=== PATIENT | male | born 1985 | race Two or more races ===

== ENCOUNTER 2018-09-23 15:09 | Emergency (ER) | payer MEDICAID ==
[~2018-09-23] VITALS: Ht 167.6 cm; Wt 59.0 kg
[~2018-09-23 15:09] MED LIST: METF-440 PO
--- NOTE | 2018-09-23 16:19 | NUR ---
Patient discharged to home in stable conditon. Written and verbal after care instructions given. Patient verbalizes understanding of instructions.PT WALKS IN STEADY GAIT.
== END 2018-09-23 16:25 | disposition home or self-care (01) ==
LOC: ER 15:09
DX: S62.616A Displaced fracture of proximal phalanx of right little finger, initial encounter for closed fracture (principal); E11.9 Type 2 diabetes mellitus without complications; Z79.899 Other long term (current) drug therapy; X50.0XXA Overexertion from strenuous movement or load, initial encounter; Y93.89 Activity, other specified; Y92.89 Other specified places as the place of occurrence of the external cause; Y99.8 Other external cause status
CPT/HCPCS: 73140; A4663

== ENCOUNTER 2018-10-03 10:45 | Emergency (ER) | payer MEDICAID ==
[~2018-10-03] VITALS: Ht 165.1 cm; Wt 59.0 kg
--- NOTE | 2018-10-03 10:45 | NUR ---
Pt.was seen by .
[2018-10-03] MEDS ORDERED: TDAP DIPH,PERTUSS,TET VAC/PF 0.5 ML DISP.SYRIN IM ONE ×2 (12:00→12:12)
[2018-10-03 12:17] LABS: RED BLOOD CELL COUNT(AUTO) 5.03 MIL/uL (4.06-5.63); WHITE BLOOD COUNT (AUTO) 7.8 K/uL (3.6-10.2)
[2018-10-03 12:18] LABS: BASOPHILS % (AUTO) 0.3 % (0.0-2.0); EOSINOPHILS # (AUTO) 0.2 K/uL (0.0-0.7); EOSINOPHILS % (AUTO) 2.7 % (0.0-7.0); HEMATOCRIT 43.8 % (36.7-47.1); HEMOGLOBIN 14.8 g/dL (12.5-16.3); LYMPHOCYTES # (AUTO) 1.6 K/uL (20.0-40.0); LYMPHOCYTES % (AUTO) 20.4 % (20.5-51.5); MEAN CORPUSCULAR HEMOGLOBIN 29.5 uug (23.8-33.4); MEAN CORPUSCULAR HGB CONC 34 g/dL (32.5-36.3); MEAN CORPUSCULAR VOLUME 87.2 fL (73.0-96.2); MONOCYTES # (AUTO) 0.4 K/uL (2.0-10.0); NEUTROPHILS # (AUTO) 5.6 K/uL (1.8-8.9); NEUTROPHILS % (AUTO) 71.6 % (38.5-71.5); PLATELET COUNT (AUTO) 222 K/uL (152-348)
[2018-10-03 12:25] LABS: CARBON DIOXIDE 25 mmol/L (21-32); CHLORIDE 101 mmol/L (98-107); CREATININE 0.6 mg/dL (0.6-1.3); POTASSIUM 4.5 mmol/L (3.5-5.1); UREA NITROGEN, BLOOD 13 mg/dL (7-18)
[2018-10-03 12:29] LABS: GLUCOSE 384 mg/dL (74-106)
[2018-10-03 12:31] LABS: ALANINE AMINOTRANSFERASE 18 U/L (16-63); ALKALINE PHOSPHATASE 146 U/L (50-136); ASPARTATE AMINOTRANSFERASE 7 U/L (15-37); BILIRUBIN,DIRECT 0.1 mg/dL (0.0-0.2); BILIRUBIN,TOTAL 0.5 mg/dL (0.2-1.0); TOTAL PROTEIN, SERUM 7.2 g/dL (6.4-8.2)
[2018-10-03] MEDS ORDERED: INSULIN REGULAR, HUMAN 300 UNIT/3 ML VIAL SQ ONE (12:45)
--- NOTE | 2018-10-03 12:45 | NUR ---
insulin given Sub Q. Pt.education about control BS done,verbalized understanding.
[2018-10-03] MEDS ORDERED: INSULIN REGULAR, HUMAN 300 UNIT/3 ML VIAL ONE (12:47)
--- NOTE | 2018-10-03 12:50 | NUR ---
Pt.was updated by .family at bedside.
[2018-10-03 12:53] VITALS: BP 101/68
== END 2018-10-03 12:57 | disposition home or self-care (01) ==
LOC: ER 10:45
DX: S80.822A Blister (nonthermal), left lower leg, initial encounter (principal); E11.65 Type 2 diabetes mellitus with hyperglycemia; Z79.899 Other long term (current) drug therapy; X58.XXXA Exposure to other specified factors, initial encounter; Y93.89 Activity, other specified; Y92.89 Other specified places as the place of occurrence of the external cause; Y99.8 Other external cause status
CPT/HCPCS: 36415; 73590; 80048; 80076; 83605; 84484; 85025; 87040 ×2; 90471; 90715; 96372; 99284; J1815; 70030-TC; A4663

== ENCOUNTER 2019-01-13 15:59 | Emergency (ER) | payer MEDICAID ==
[~2019-01-13] VITALS: Ht 167.6 cm; Wt 54.4 kg
[2019-01-13] MEDS ORDERED: TETRACAINE HCL 0.5% OPHT DROP 2 ML BOTTLE ONE (16:13)
[2019-01-13] MEDS ORDERED: FLUORESCEIN SODIUM 1 MG STRIP ONE (16:13)
[2019-01-13] MEDS ORDERED: FLUORESCEIN SODIUM 1 MG STRIP OP ONE (16:15)
[2019-01-13] MEDS ORDERED: TETRACAINE HCL 0.5% OPHT DROP 2 ML BOTTLE OP ONE (16:15)
--- NOTE | 2019-01-13 16:15 | NUR ---
MARGARITA CARRASCO AT BEDSIDE FOR MSE.
--- NOTE | 2019-01-13 16:32 | NUR ---
Patient discharged to home in stable conditon. Written and verbal after care instructions given. Patient verbalizes understanding of instructions.
[2019-01-13 16:33] VITALS: BP 105/67
== END 2019-01-13 16:40 | disposition home or self-care (01) ==
LOC: ER 16:00
DX: H10.89 Other conjunctivitis (principal); B96.89 Other specified bacterial agents as the cause of diseases classified elsewhere; E11.9 Type 2 diabetes mellitus without complications; Z79.899 Other long term (current) drug therapy
CPT/HCPCS: A4663

== ENCOUNTER 2019-01-14 05:15 | Emergency (ER) | payer MEDICAID ==
[~2019-01-14] VITALS: Ht 167.6 cm; Wt 59.0 kg
--- NOTE | 2019-01-14 05:26 | NUR ---
Pt ambulated to ER c/o left eye pain 8/10 and headache. 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 Pt states he used prescribed eye drops and the burning in his left eye has not resolved since he was last seen here yesterday.
--- NOTE | 2019-01-14 05:54 | NUR ---
Dr Chawla at bedside for MSE.
--- NOTE | 2019-01-14 06:05 | NUR ---
Patient discharged to home in stable conditon. Written and verbal after care instructions given. Patient verbalizes understanding of instructions. Pt ambulated out of ER with stable gait, accompanied by . All belongings with pt.
[2019-01-14 06:09] VITALS: BP 115/70
== END 2019-01-14 06:10 | disposition home or self-care (01) ==
LOC: ER 05:17
DX: H10.9 Unspecified conjunctivitis (principal); E11.9 Type 2 diabetes mellitus without complications; Z79.899 Other long term (current) drug therapy
CPT/HCPCS: A4663

== ENCOUNTER 2019-07-22 18:00 | Emergency (ER) | payer MEDICAID ==
[~2019-07-22] VITALS: Ht 165.1 cm; Wt 59.0 kg
[2019-07-22] MEDS ORDERED: KETOROLAC TROMETHAMINE 30 MG INJ IVP ONE (19:00)
[2019-07-22] MEDS ORDERED: PIPERACILLIN SODIUM/TAZOBACTAM 3.375 G in IV DEXTROSE 5% 50 ML IV ONE (19:00)
[2019-07-22] MEDS ORDERED: KETOROLAC TROMETHAMINE 30 MG INJ ONE (19:31)
[2019-07-22] MEDS ORDERED: PIPERACILLIN/TAZOBACTAM/D5W 50 ML IV ONE (19:31)
[2019-07-22 20:01] VITALS: BP 110/75
== END 2019-07-22 20:01 | disposition home or self-care (01) ==
LOC: ER 18:03
DX: K04.7 Periapical abscess without sinus (principal); E11.9 Type 2 diabetes mellitus without complications; Z79.84 Long term (current) use of oral hypoglycemic drugs
CPT/HCPCS: 96374; 99283; J1885; J2543; A4663

== ENCOUNTER 2019-09-13 12:11 | Inpatient (IN) | payer MEDICAID ==
[2019-09-13] VITALS (8 sets, daily range): BP systolic 105–132; BP diastolic 61–91
[~2019-09-13] VITALS: Ht 167.6 cm; Wt 49.4 kg
[2019-09-13] MEDS ORDERED: HYDROMORPHONE 1 MG/1 ML DISP.SYRIN IV ONE (12:30)
[2019-09-13] MEDS ORDERED: IV NORMAL SALINE 1000 ML BAG IV ONE ×2 (12:30→13:15)
[2019-09-13] MEDS ORDERED: ONDANSETRON 4 MG/2 ML VIAL IV ONE (12:30)
--- NOTE | 2019-09-13 12:32 | NUR ---
PATIENT BROUGHT IN ER FOR VOMITING. A/O X3. SPO2 100% RA TACHYCARDIC AT 112 BS 538. MD NOTIFIED MONITORED ACCORDINGLY WILL CONTINUE TO MONITOR
--- NOTE | 2019-09-13 12:35 | NUR ---
CALLED FOR BED.
[2019-09-13] MEDS ORDERED: HYDROMORPHONE 1 MG/1 ML DISP.SYRIN ONE (12:39)
[2019-09-13] MEDS ORDERED: ONDANSETRON 4 MG/2 ML VIAL ONE (12:40)
[2019-09-13] MEDS ORDERED: INSULIN REGULAR, HUMAN 100 UNIT in IV NORMAL SALINE 100 ML IV ONE ×2 (12:45)
[2019-09-13 12:55] LABS: BASOPHILS # (AUTO) 0.1 K/uL (0.0-8.0); BASOPHILS % (AUTO) 1.1 % (0.0-2.0); HEMATOCRIT 53.9 % (36.7-47.1); HEMOGLOBIN 17.6 g/dL (12.5-16.3); LYMPHOCYTES # (AUTO) 1.2 K/uL (20.0-40.0); LYMPHOCYTES % (AUTO) 8.7 % (20.5-51.5); MEAN CORPUSCULAR HEMOGLOBIN 29.3 uug (23.8-33.4); MEAN CORPUSCULAR HGB CONC 33 g/dL (32.5-36.3); MEAN CORPUSCULAR VOLUME 89.8 fL (73.0-96.2); MONOCYTES # (AUTO) 0.8 K/uL (2.0-10.0); MONOCYTES % (AUTO) 6.3 % (0.0-11.0); NEUTROPHILS # (AUTO) 11.3 K/uL (1.8-8.9); NEUTROPHILS % (AUTO) 83.9 % (38.5-71.5); PLATELET COUNT (AUTO) 402 K/uL (152-348); WHITE BLOOD COUNT (AUTO) 13.5 K/uL (3.6-10.2)
[2019-09-13 12:58] LABS: CREATININE 1.6 mg/dL (0.6-1.3)
[2019-09-13 13:01] LABS: BILIRUBIN,DIRECT 0.1 mg/dL (0.0-0.2); BILIRUBIN,TOTAL 0.5 mg/dL (0.2-1.0); TOTAL PROTEIN, SERUM 8.6 g/dL (6.4-8.2)
[2019-09-13 13:31] LABS: ABG BASE EXCESS -20.6 mmol/L; ABG HCO3 6.5 mmol/L; ABG PCO2 19.7 mmHg (35.0-45.0); ABG PH 7.134 (7.350-7.450); ABG PO2 119.7 mmHg (75.0-100.0); ABG SITE RIGHT RADIAL; ABG TOTAL HEMOGLOBIN 15.4 G/dL (13.5-18.0); COHb 0.9 % (0.5-1.5); MetHb 0.4 % (0.0-1.5); O2Hb 97.2 % (94.0-97.0)
[2019-09-13] MEDS ORDERED: Z GUARD REMEDY PASTE 57 GM TUBE TOP PRN (14:00)
[2019-09-13] MEDS ORDERED: ACETAMINOPHEN 325 MG TABLET PO PRN (14:00)
[2019-09-13] MEDS ORDERED: IV 1/2NS 1000 ML 1,000 ML IV PRN (14:00)
[2019-09-13] MEDS ORDERED: INSULIN REGULAR, HUMAN 100 UNITS in IV NORMAL SALINE 100 ML IV ONE ×2 (14:00)
--- NOTE | 2019-09-13 14:10 | NUR ---
REPORT GIVEN TO BONIFACIO RODRIGUEZ
--- NOTE | 2019-09-13 14:10 | NUR ---
Full telephone SBAR report received by HAT MARKERJENNIFER Duarte.
--- NOTE | 2019-09-13 14:35 | NUR ---
Pt. admitted to CCU 4 , under care of Dr. Serna Belongs List completed with patient. Helped patient change into hospital gown. Transported patient to CCU with 2 RNs
--- NOTE | 2019-09-13 15:00 | NUR ---
Pt received from ER A&O X4. Tachycardic on monitor HR 112's. Nad noted. On IV insulin drip at 4 mg/hr infusing left antecubital #18. Cardiac alarms and monitor wnl. IV pump wnl. Fall precautions and safety measures maintained. Oriented pt to room and discussed plan of care. Pt verbalized understanding. Also spoke with on the telephone and made aware of pt's condition and plan of care.
--- NOTE | 2019-09-13 15:53 | NUR ---
Spoke with Dr. Serna on the telephone regarding pt's c/o abd pain and current blood sugar. New orders received.
[2019-09-13] MEDS: BLOOD SUGAR DIAGNOSTIC 1 EACH STRIP VI SCH ×8 (16:01→23:03)
[2019-09-13] MEDS: IV D5 1/2 NS 1000 ML 1,000 ML IV PRN ×2 (16:01→23:31)
[2019-09-13] MEDS: MORPHINE SULFATE 2 MG/1 ML DISP.SYRIN IV PRN ×2 (16:07→21:40)
[2019-09-13 17:40] LABS: CREATININE 1.3 mg/dL (0.6-1.3); POTASSIUM 3.1 mmol/L (3.5-5.1)
[2019-09-13] MEDS ORDERED: INSULIN REGULAR, HUMAN 100 UNIT in IV NORMAL SALINE 100 ML IV PRN ×2 (17:55)
[2019-09-13] MEDS: ONDANSETRON 4 MG/2 ML VIAL IV PRN ×2 (18:10→23:55)
--- NOTE | 2019-09-13 18:35 | NUR ---
Brought pt down with radiology for CT abd/pelvis.
--- NOTE | 2019-09-13 18:55 | NUR ---
Pt returned to the unit from CT abd/pelvis.
[2019-09-13] MEDS: POTASSIUM CHLORIDE 50 ML IV SCH ×4 (19:21→22:01)
--- NOTE | 2019-09-13 19:30 | NUR ---
Report received. Patient awake but generally weak; able to follow commands and make needs known. On continuous Insulin drip by protocol via infusion pump and accuchecks QH. library monitor: ST, BP stable. Assessment completed. Addendum: 09/13/19 at 2130 by JANET HILL RN Amended: Links added.
--- NOTE | 2019-09-13 19:45 | NUR ---
Encouraged to use the urinal; voided 600ml of clear yellow urine. Specimen collected and sent to lab.
--- NOTE | 2019-09-13 20:05 | NUR ---
Seen by Dr. Serna; plan of care discussed. Aware of blood sugar of 209 at 1999. Orders received.
[2019-09-13 20:33] LABS: *BILIRUBIN,URIN NEGATIVE (NEGATIVE); *BLOOD, URINE 2+ (NEGATIVE); *COLOR,URINE YELLOW (YELLOW); *KETONES,URINE 4+ (NEGATIVE); *UROBILINOGEN,URINE 0.2 E.U./dl (NORMAL); NITRITE, URINE POSITIVE (NEGATIVE); PH,URINE 6.5 (5.0-8.0); UGLUCOSE 2+ (NEGATIVE)
[2019-09-13] MEDS: BENZOCAINE/MENTH/CETYLPYRD LOZENGE MM PRN (20:33)
--- NOTE | 2019-09-13 20:35 | NUR ---
Nauseated. Had a small brownish emesis. Spoke to Dr. Serna. Raul SCHULER given as ordered by . Addendum: 09/13/19 at 2126 by JANET HILL RN Amended: Links added. Addendum: 09/13/19 at 2130 by JANET HILL RN Amended: Links added.
[2019-09-13] MEDS ORDERED: ONDANSETRON 4 MG/2 ML VIAL IV STA (20:37)
[2019-09-13 20:41] LABS: *CLARITY,URINE SLIGHTLY HAZY (CLEAR); LEUKOCYTE ESTERASE ,URINE TRACE (NEGATIVE)
[2019-09-13 20:43] LABS: BACTERIA,URINE FEW /HPF (NONE SEEN); MUCUS,URINE FEW /LPF (0-FEW)
--- NOTE | 2019-09-13 21:00 | NUR ---
Patient's Peri called; updated of patient's condition.
[2019-09-14] VITALS (11 sets, daily range): BP systolic 96–135; BP diastolic 53–84
[2019-09-14] MEDS: BLOOD SUGAR DIAGNOSTIC 1 EACH STRIP VI SCH ×13 (00:02→21:00)
[2019-09-14] MEDS: MORPHINE SULFATE 2 MG/1 ML DISP.SYRIN IV PRN ×3 (02:07→21:00)
[2019-09-14 05:20] LABS: BASOPHILS % (AUTO) 0.3 % (0.0-2.0); EOSINOPHILS % (AUTO) 0.3 % (0.0-7.0); HEMATOCRIT 39.2 % (36.7-47.1); HEMOGLOBIN 13.5 g/dL (12.5-16.3); LYMPHOCYTES # (AUTO) 1.3 K/uL (20.0-40.0); LYMPHOCYTES % (AUTO) 15.9 % (20.5-51.5); MEAN CORPUSCULAR HEMOGLOBIN 29.6 uug (23.8-33.4); MEAN CORPUSCULAR HGB CONC 35 g/dL (32.5-36.3); MEAN CORPUSCULAR VOLUME 85.6 fL (73.0-96.2); MONOCYTES # (AUTO) 0.8 K/uL (2.0-10.0); MONOCYTES % (AUTO) 10.4 % (0.0-11.0); NEUTROPHILS # (AUTO) 5.8 K/uL (1.8-8.9); NEUTROPHILS % (AUTO) 73.1 % (38.5-71.5); PLATELET COUNT (AUTO) 280 K/uL (152-348); RED BLOOD CELL COUNT(AUTO) 4.57 MIL/uL (4.06-5.63)
[2019-09-14 05:32] LABS: BILIRUBIN,TOTAL 0.6 mg/dL (0.2-1.0); CREATININE 0.9 mg/dL (0.6-1.3); PHOSPHOROUS 1.1 mg/dL (2.5-4.9); POTASSIUM 2.9 mmol/L (3.5-5.1); TOTAL PROTEIN, SERUM 5.9 g/dL (6.4-8.2)
--- NOTE | 2019-09-14 05:40 | NUR ---
Sleeping at intervals. Moans and groans occasionally with c/o sore throat and vague generalized pain. Medicated with Morphine IV PRN. Remains on accuchecks Q hourly and Insulin drip per sliding scale Algorithm#1
[2019-09-14] MEDS: ONDANSETRON 4 MG/2 ML VIAL IV PRN ×2 (06:18→17:21)
[2019-09-14] MEDS: IV D5 1/2 NS 1000 ML 1,000 ML IV PRN (07:33)
[2019-09-14] MEDS ORDERED: POTASSIUM CHLORIDE 20 MEQ TAB.PRT.SR PO ONE (08:45)
--- NOTE | 2019-09-14 08:48 | NUR ---
Spoke with Dr. Serna on the telephone. Full report given. New orders received.
[2019-09-14] MEDS: METFORMIN HCL 500 MG TABLET PO SCH ×2 (08:57→17:23)
[2019-09-14] MEDS ORDERED: DEXTROSE 50% 50 ML DISP.SYRIN IV PRN (09:00)
[2019-09-14] MEDS ORDERED: INSULIN REGULAR, HUMAN 300 UNITS/3 ML VIAL SQ PRN (09:00)
[2019-09-14] MEDS: INSULIN REGULAR, HUMAN 300 UNIT/3 ML VIAL SQ PRN ×3 (09:16→16:50)
[2019-09-14] MEDS ORDERED: POTASSIUM PHOSPHATE MM 15 MMOL in IV NORMAL SALINE 250 ML IV ONE (09:30)
--- NOTE | 2019-09-14 11:10 | NUR ---
Dr. Serna here to see pt. Full report given. New orders received. Ok to downgrade to med/surg status.
[2019-09-14] MEDS ORDERED: POTASSIUM CHLORIDE 20 MEQ POWDER PACKET GT ONE (11:30)
--- NOTE | 2019-09-14 13:01 | NUR ---
Full telephone SBAR report given to RN Criss 3rd floor.
[2019-09-14] MEDS: BENZOCAINE/MENTH/CETYLPYRD LOZENGE MM PRN (13:03)
--- NOTE | 2019-09-14 14:15 | NUR ---
Received patient from ICU via bed, patient alert and oriented x3 , no SOB and no C/o pain noted. vitals are WNL. all belongings accounted for. bed in low position and associate marketing manager rails up x2 and bed alarm on, will continue to monitor.
--- NOTE | 2019-09-14 14:23 | NUR ---
Pt transferred to room 315 med/surg. VSS wnl. All belongings reviewed and brought with the pt.
--- NOTE | 2019-09-14 18:38 | NUR ---
Patient resting in bed. Alert and [place] x3 and able to make needs known. No acute distress noted and no SOB noted. Denies any pain and discomfort. all due meds given as ordered and tolerated well. Safety and comfort measures provided. Call light and personal items within reach. Will continue to monitor.
--- NOTE | 2019-09-14 19:00 | NUR ---
PATIENT ALERT ORIENTED, NO SOB NO CHEST PAIN, PATIENT COMPLAIN OF GEN BODY PAIN, WILL MEDICATED ORDERED. PATIENT HAS NO S/S OF HYPO/HYPERGLYCEMIA NOTED. CONT TO MONITOR.
--- NOTE | 2019-09-14 21:21 | NUR ---
PATIENT BLOOD SUGAR 290, CHANGE IV FLUIDS TO 1/2 NS AT 125ML PER HOURS PER ORDER.
[2019-09-14] MEDS: IV 1/2NS 1000 ML 1,000 ML IV SCH (21:46)
--- NOTE | 2019-09-15 05:07 | NUR ---
PATIENT AWAKE ALERT ORIENTED, NO SOB NO CHEST PAIN. PATIENT HAS NO S/S OF HYPO/HYPERGYLCEMIA NOTED. PATIENT CONTINUE ON PAIN MANAGEMENT, PAIN ON BACK AND THROAT. CONT TO MONITOR BLOOD SUGAR, CALL LIGHT WITHIN REACH.
[2019-09-15 05:21] VITALS: BP 110/69
[2019-09-15] MEDS: IV 1/2NS 1000 ML 1,000 ML IV SCH (05:42)
[2019-09-15] MEDS: BLOOD SUGAR DIAGNOSTIC 1 EACH STRIP VI SCH ×2 (06:16→12:24)
[2019-09-15] MEDS: MORPHINE SULFATE 2 MG/1 ML DISP.SYRIN IV PRN (06:17)
[2019-09-15 08:00] VITALS: BP 108/62
[2019-09-15] MEDS: METFORMIN HCL 500 MG TABLET PO SCH (08:23)
[2019-09-15 12:00] VITALS: BP 108/62
[2019-09-15] MEDS: ONDANSETRON 4 MG/2 ML VIAL IV PRN (12:19)
[2019-09-15] MEDS: INSULIN REGULAR, HUMAN 300 UNIT/3 ML VIAL SQ PRN (12:22)
[2019-09-15 14:32] LABS: BASOPHILS % (AUTO) 0.2 % (0.0-2.0); EOSINOPHILS % (AUTO) 0.7 % (0.0-7.0); HEMATOCRIT 38.9 % (36.7-47.1); HEMOGLOBIN 13.5 g/dL (12.5-16.3); LYMPHOCYTES # (AUTO) 1.4 K/uL (20.0-40.0); MEAN CORPUSCULAR HEMOGLOBIN 29.6 uug (23.8-33.4); MEAN CORPUSCULAR HGB CONC 35 g/dL (32.5-36.3); MEAN CORPUSCULAR VOLUME 85.2 fL (73.0-96.2); MONOCYTES # (AUTO) 0.6 K/uL (2.0-10.0); NEUTROPHILS # (AUTO) 3.8 K/uL (1.8-8.9); NEUTROPHILS % (AUTO) 65.1 % (38.5-71.5); PLATELET COUNT (AUTO) 217 K/uL (152-348); RED BLOOD CELL COUNT(AUTO) 4.56 MIL/uL (4.06-5.63); WHITE BLOOD COUNT (AUTO) 5.8 K/uL (3.6-10.2)
[2019-09-15 14:48] LABS: BILIRUBIN,TOTAL 0.4 mg/dL (0.2-1.0); CREATININE 0.7 mg/dL (0.6-1.3)
[2019-09-15 14:51] LABS: POTASSIUM 2.1 mmol/L (3.5-5.1)
[2019-09-15] MEDS ORDERED: POTASSIUM CHLORIDE 20 MEQ TAB.PRT.SR PO ONE (15:00)
[2019-09-15] MEDS ORDERED: POTASSIUM PHOSPHATE MM 15 MMOL in IV NORMAL SALINE 250 ML IV ONE (15:00)
[2019-09-15 16:00] VITALS: BP 111/69
--- NOTE | 2019-09-15 16:10 | NUR ---
PATIENT LEFT AMA ; PATIENT HAD ORDERS FOR DISCHARGE; LABORATORY THEN CALLED WITH CRITICAL LAB VALUES; PATIENT INFORMED THAT INITIAL DISCHARGE WAS CANCELLED DUE TO CRITICAL POTASSIUM AND PHOSPHOROUS LEVELS; PATIENT EDUCATED ABOUT RISK FACTORS ASSOCIATED WITH ELECTROLYTE IMBALANCES SUCH CARDIAC ISSUE; PATIENT EXPRESSED THAT HAD HAD DRIVEN FROM [facility] AND WANTED TO LEAVE REGARDLESS; PATIENT EDUCATED MULTIPLE TIMES ABOUT ELECTROLYTE IMBALANCE DANGERS BUT PATIENT ANOX4 AND STILL DECIDED TO LEAVE. PATIENT LEFT PRIVATE CAR WITH .
== END 2019-09-15 16:10 | disposition left against medical advice (07) | DRG 420 ==
LOC: ER 12:14 → CCU 14:29 → MEDSURG3 09-14 14:29
PROVIDERS: ADMIT Internal Medicine; ATTEND Internal Medicine
DX: E11.10 Type 2 diabetes mellitus with ketoacidosis without coma (principal); N17.0 Acute kidney failure with tubular necrosis; Z79.84 Long term (current) use of oral hypoglycemic drugs; E86.9 Volume depletion, unspecified; D72.829 Elevated white blood cell count, unspecified; E87.2 Acidosis; E11.65 Type 2 diabetes mellitus with hyperglycemia
CPT/HCPCS: 36415; 36600; 70030-TC; 71045; 83605; 83690; 83735; 84100; 85025; 85730; 87086; 87400; 93005; A4663; G0378; J1170; J1815; J2270; J2405; J3480; J3490; J7030; J7050

== ENCOUNTER 2024-07-10 01:47 | Emergency (ER) | payer MEDICAID, OTHER ==
[~2024-07-10] VITALS: Ht 165.1 cm; Wt 56.7 kg
[~2024-07-10 01:47] MED LIST changes: +GABA800T11 PO; +OXYC-133 PO
[2024-07-10 02:14] LABS: BASOPHILS % (AUTO) 0.2 % (0.0-2.0); EOSINOPHILS # (AUTO) 0.3 K/uL (0.0-0.7); EOSINOPHILS % (AUTO) 4.2 % (0.0-7.0); HEMATOCRIT 37.2 % (36.7-47.1); HEMOGLOBIN 12.5 g/dL (12.5-16.3); LYMPHOCYTES # (AUTO) 1.5 K/uL (0.8-4.8); LYMPHOCYTES % (AUTO) 21.9 % (20.5-51.5); MEAN CORPUSCULAR HGB CONC 34 g/dL (32.5-36.3); MEAN CORPUSCULAR VOLUME 89.5 fL (73.0-96.2); MONOCYTES # (AUTO) 0.4 K/uL (0.1-1.30); MONOCYTES % (AUTO) 6.1 % (0.0-11.0); NEUTROPHILS # (AUTO) 4.5 K/uL (1.8-8.9); NEUTROPHILS % (AUTO) 67.6 % (38.5-71.5); PLATELET COUNT (AUTO) 232 K/uL (152-348); RED BLOOD CELL COUNT(AUTO) 4.16 MIL/uL (4.06-5.63); RED CELL DISTRIBUTION WIDTH 13.2 % (12.1-16.2); WHITE BLOOD COUNT (AUTO) 6.7 K/uL (3.6-10.2)
[2024-07-10 02:16] LABS: DIFFERENTIAL COMMENT 1
[2024-07-10] MEDS: IV NS 1000 ML 1,000 ML IV ONE ×2 (02:23→02:47)
[2024-07-10 02:27] LABS: ALANINE AMINOTRANSFERASE 29 U/L (16-63); ALBUMIN 3.2 g/dL (3.4-5.0); ALKALINE PHOSPHATASE 183 U/L (50-136); ASPARTATE AMINOTRANSFERASE 6 U/L (15-37); BILIRUBIN,TOTAL 0.3 mg/dL (0.2-1.0); CALCIUM 8.6 mg/dL (8.5-10.1); CARBON DIOXIDE 29 mmol/L (21-32); CHLORIDE 95 mmol/L (98-107); CREATININE 1.1 mg/dL (0.6-1.3); POTASSIUM 4.7 mmol/L (3.5-5.1); SODIUM SERUM 130 mmol/L (136-145); TOTAL PROTEIN, SERUM 6.7 g/dL (6.4-8.2); UREA NITROGEN, BLOOD 21 mg/dL (7-18)
[2024-07-10 02:33] LABS: GLUCOSE 631 mg/dL (74-106)
[2024-07-10] MEDS ORDERED: INSULIN REGULAR, HUMAN 1000 UNIT/10 ML VIAL ONE (02:45)
[2024-07-10] MEDS ORDERED: INSULIN REGULAR, HUMAN 5 UNIT in IV NORMAL SALINE 100 ML IV ONE (02:45)
[2024-07-10] MEDS: INSULIN REGULAR, HUMAN 1000 UNIT/10 ML VIAL IV ONE (02:53)
[2024-07-10 02:55] LABS: ACETONE, SERUM NEGATIVE (NEGATIVE)
[2024-07-10 03:18] LABS: *BILIRUBIN,URIN NEGATIVE (NEGATIVE); *CLARITY,URINE CLEAR (CLEAR); *KETONES,URINE 1+ (NEGATIVE); *PROTEIN,URINE NEGATIVE (NEGATIVE); *UROBILINOGEN,URINE 0.2 E.U./dl (NORMAL); LEUKOCYTE ESTERASE ,URINE NEGATIVE (NEGATIVE); NITRITE, URINE NEGATIVE (NEGATIVE); UGLUCOSE 3+ (NEGATIVE)
[2024-07-10 03:22] LABS: *BLOOD, URINE TRACE INTACT (NEGATIVE); *COLOR,URINE LIGHT YELLOW (YELLOW)
[2024-07-10 03:29] LABS: RBC,URINE 0-3 /HPF (0-3); WBC,URINE 0-3 /HPF (0-3)
[2024-07-10 03:30] LABS: BACTERIA,URINE NONE SEEN /HPF (NONE SEEN); SQUAMOUS EPITHELIAL CELL,UR NONE SEEN /HPF (NONE SEEN)
[2024-07-10 03:44] LABS: *AMPHETAMINE, URINE POSITIVE (NEGATIVE); *BARBITURATE, URINE NEGATIVE (NEGATIVE); *BENZODIAZEPINE, URINE NEGATIVE (NEGATIVE); *CANNABINOID, URINE NEGATIVE (NEGATIVE); *COCCAINE, URINE NEGATIVE (NEGATIVE); *OPIATE, URINE NEGATIVE (NEGATIVE); *PHENCYCLIDINE SCREEN,URINE NEGATIVE (NEGATIVE); FENTANYL, URINE NEGATIVE (NEGATIVE)
[2024-07-10] MEDS ORDERED: INSU300I3 SQ (05:16)
[2024-07-10 05:30] VITALS: BP 130/86; TEMP 98.2; O2SAT 98
[2024-07-10] MEDS ORDERED: INSULIN REGULAR, HUMAN 100 UNIT in IV NORMAL SALINE 99 ML IV PRN (10:45)
== END 2024-07-10 05:40 | disposition home or self-care (01) ==
LOC: ER 01:52
DX: E11.65 Type 2 diabetes mellitus with hyperglycemia (principal); Z79.4 Long term (current) use of insulin; Z79.899 Other long term (current) drug therapy; Z88.7 Allergy status to serum and vaccine
CPT/HCPCS: 99283; 96374; 96361; 80053; 82009; 82962 ×2; 85025; 36415; 80307; 81001; J1815; J7040 ×2; A4606; A4663